=== PATIENT | female | born 1950 | race Caucasian/White ===

== ENCOUNTER 2018-07-17 10:47 | Emergency (ER) | payer SELFPAY ==
[2018-07-17] MEDS ORDERED: Sodium Chloride 0.9% 10 ML Syringe FLUSH PRN (11:13)
--- NOTE | 2018-07-17 11:57 | EDM.PDOC ---
<Moustapha Felipe - Last Filed: 07/17/18 15:07> ED HPI GENERAL MEDICAL PROBLEM - General Chief Complaint: Respiratory Problem Stated Complaint: [facility] Time Seen by Provider: 07/17/18 10:58 Source of Information: Reports: Patient, Family (grand daughter) History Limitations: Reports: No Limitations - History of Present Illness INITIAL COMMENTS - FREE TEXT/NARRATIVE: 68-Year old morbidly obese female who seldom seeks medical care presents for 2 falls this morning as well as bilateral lower extremity weakness and hypoxia. The patient has had 2 falls this morning that required assistance by EMS. The first fall happened around 6:00 am this morning after the patient aroused from bed. The second fall happened around 10:00 am in the patients living room after using the bathroom. The patient denies any loss of consciousness, or trauma to the head or neck. The only traumatic injury was a very mild scrape to the dorsal ulnar aspect of left hand. She admits to being short of breath for the past few months, especially with activity. She is ambulatory without assistance at home with the use of walker and cane. She lives at home in the care of her family members. Recently she has also developed a productive cough, and wheezing which she attributes to an upper respiratory infection that she caught from her grandson. She also states she has been feeling nauseated since last evening but no vomiting or abdominal pain. Chronically she has been noticing lower leg edema for longer than 3 months that she has never had medically evaluated. The patient denies fever, chills, palpitations, dizziness, focal weakness, changes in speech or behavior Onset: Today Duration: Getting Worse Location: Reports: Lower Extremity, Left, Lower Extremity, Right Quality: Reports: Other (weakness) Severity: Moderate Improves with: Reports: None Worsens with: Reports: None Context: Reports: Activity. Denies: Exercise, Lifting, Sick Contact, Trauma Associated Symptoms: Reports: No Other Symptoms, Weakness (lower extremities bilaterally), Other (nausea). Denies: Confusion, Chest Pain, Cough, cough w sputum, Fever/Chills, Headaches, Loss of Appetite, Malaise, Seizure, Shortness of Breath, Syncope - Related Data Allergies Allergy/AdvReac Type Severity Reaction Status Date / Time No Known Allergies Allergy Verified 07/17/18 10:58 Home Meds: Home Meds . [No Known Home Meds] 07/17/18 [History] ED ROS GENERAL - Review of Systems Review Of Systems: See Below Constitutional: Reports: No Symptoms. Denies: Fever, Chills, Night Sweats, Diaphoresis HEENT: Reports: No Symptoms. Denies: Ear Pain, Eye Pain, Nose Pain, Rhinitis, Sinus Problem, Throat Pain, Throat Swelling, Vertigo, Vision Change Respiratory: Reports: Shortness of Breath, Wheezing, Cough, Sputum. Denies: Pleuritic Chest Pain, Hemoptysis Cardiovascular: Reports: Dyspnea on Exertion, Edema. Denies: Chest Pain, Blood Pressure Problem, Claudication, Lightheadedness, Palpitations, Syncope Endocrine: Reports: No Symptoms, Other (Pt states she had a thyroid problem when she was younger but pt wasnt sure of the specifics). Denies: Fatigue, High Glucose, Low Glucose, Polydypsia, Polyuria : Reports: No Symptoms. Denies: Dysuria, Flank Pain, Frequency, Incontinence , Pain, Urgency Musculoskeletal: Reports: No Symptoms. Denies: Neck Pain, Joint Pain, Muscle Pain, Muscle Stiffness Skin: Reports: No Symptoms. Denies: Cyanosis, Jaundice, Mottled, Pallor, Diaphoresis, Dryness Neurological: Reports: Paresthesia (chronic of the lower extremities), Difficulty Walking (Pt is ambulatory with walker at home), Weakness (Subjective weekens of the LE bilaterally.). Denies: Confusion, Dizziness, Headache, Numbness, Syncope, Tremors, Trouble Speaking, Change in Speech, Gait Disturbance Psychiatric: Reports: No Symptoms. Denies: Anxiety, Confusion, Depression, Hallucinations Hematologic/Lymphatic: Reports: No Symptoms. Denies: Anemia, Easy Bleeding, Easy Bruising Immunologic: Reports: No Symptoms. Denies: Anaphylaxis ED EXAM, GENERAL - Physical Exam Exam: See Below Exam Limited By: No Limitations General Appearance: Alert, WD/WN, No Apparent Distress, Obese Eye Exam: Bilateral Eye: EOMI, Normal Inspection, PERRL Ears: Normal External Exam, Normal Canal, Hearing Grossly Normal, Normal TMs Ear Exam: Bilateral Ear: Auricle Normal, Canal Normal, TM normal Nose: Normal Inspection, Normal Mucosa, No Blood Head: Atraumatic, Normocephalic Neck: Normal Inspection, Supple, Non-Tender, Full Range of Motion Respiratory/Chest: No Respiratory Distress, No Accessory Muscle Use, Chest Non- Tender, Crackles (Fine late inspiratory crackles bilaterally in lower lung boyle). No: Rhonchi, Wheezing, Pleural Rub Cardiovascular: Normal Peripheral Pulses, Regular Rate, Rhythm, No Murmur, No Rub, Other (+4 pitting edema of the lower extremities extening to the knees bilaterally) Peripheral Pulses: 2+: Carotid (L), Carotid (R), Radial (L), Radial (R), Dorsalis Pedis (L), Dorsalis Pedis (R) GI/Abdominal: Normal Bowel Sounds, Soft, Non-Tender, No Organomegaly, No Distention, No Abnormal Bruit, No Mass (Female) Exam: Deferred Rectal (Female) Exam: Deferred Back Exam: Normal Inspection, Full Range of Motion, NT Extremities: Pedal Edema, Leg Pain (with palpation of the lower extremity.), Limited Range of Motion (of the knee and ankles bilaterally due to edema.). No : Pallor Neurological: Alert, Oriented, CN II-XII Intact, Normal Cognition, Normal Reflexes, No Motor/Sensory Deficits Psychiatric: Normal Affect, Normal Mood Skin Exam: Warm, Dry, Intact, Normal Color, No Rash Lymphatic: No Adenopathy Course - Vital Signs Last Recorded V/S: Last Vital Signs Temp 98.9 F 07/17/18 10:58 Pulse 85 07/17/18 10:58 Resp 27 H 07/17/18 10:58 BP 163/76 H 07/17/18 10:58 Pulse Ox 100 07/17/18 17:19 - Orders/Labs/Meds Orders: Active Orders 24 hr Category Date Time Status EKG 12 Lead [EKG Documentation Completion] [RC] STAT Care 07/17/18 11:14 Active Insert Peace Catheter [Insert Urinary Catheter] [OM.PC] Care 07/17/18 19:00 Ordered Q24H Oxygen Therapy [RC] ASDIRECTED Care 07/17/18 11:14 Active Peripheral IV Care [RC] . DIRECTED Care 07/17/18 11:15 Active Urinary Catheter Assessment [RC] ASDIRECTED Care 07/17/18 18:59 Active CULTURE BLOOD [BC] Stat Lab 07/17/18 11:30 Received UA W/MICROSCOPIC [URIN] Stat Lab 07/17/18 18:58 Ordered Sodium Chloride 0.9% [Saline Flush] Med 07/17/18 11:13 Active 10 ml FLUSH ASDIRECTED PRN Peripheral IV Insertion Adult [OM.PC] Stat Oth 07/17/18 11:14 Ordered Medication Orders Sodium Chloride (Saline Flush) 10 ml FLUSH ASDIRECTED PRN PRN Reason: Keep Vein Open Last Admin: 07/17/18 11:26 Dose: 10 ml Labs: Laboratory Tests 07/17/18 07/17/18 07/17/18 Range/Units 11:25 11:25 11:25 WBC 6.93 (3.98-10.04) K/mm3 RBC 3.80 L (3.98-5.22) M/mm3 Hgb 11.4 (11.2-15.7) gm/L Hct 38.8 (34.1-44.9) % MCV 102.1 H (79.4-94.8) fl MCH 30.0 (25.6-32.2) pg MCHC 29.4 L (32.2-35.5) g/dl RDW Std Deviation 58.7 H (36.4-46.3) fL Plt Count 181 L (182-369) K/mm3 MPV 10.1 (9.4-12.3) fl Neut % (Auto) 74.9 H (34.0-71.1) % Lymph % (Auto) 16.5 L (19.3-51.7) % [place] % (Auto) 7.5 (4.7-12.5) % Eos % (Auto) 0.1 L (0.7-5.8) Baso % (Auto) 0.4 (0.1-1.2) % Neut # (Auto) 5.19 (1.56-6.13) K/mm3 Lymph # (Auto) 1.14 L (1.18-3.74) K/mm3 [place] # (Auto) 0.52 H (0.24-0.36) K/mm3 Eos # (Auto) 0.01 L (0.04-0.36) K/mm3 Baso # (Auto) 0.03 (0.01-0.08) K/mm3 Manual Slide Review Normal smear D-Dimer, Quantitative (0.19-0.50) mg/L Sodium 141 (136-145) mEq/L Potassium 5.0 (3.5-5.1) mEq/L Chloride 109 H (98-107) mEq/L Carbon Dioxide 22 (21-32) mEq/L Anion Gap 15.0 (5-15) BUN 32 H (7-18) mg/dL Creatinine 2.2 H (0.55-1.02) mg/dL Est Cr Clr Drug Dosing TNP Estimated GFR (MDRD) 22 (>60) mL/min BUN/Creatinine Ratio 14.5 (14-18) Glucose 168 H (80-115) mg/dL Calcium 8.7 (8.5-10.1) mg/dL Total Bilirubin 0.3 (0.2-1.0) mg/dL AST 21 (15-37) U/L ALT 15 (14-59) U/L Alkaline Phosphatase 93 (46-116) U/L C-Reactive Protein 1.2 H* (<1.0) mg/dL NT-Pro-B Natriuret Pep (0-125) pg/mL Total Protein 7.8 (6.4-8.2) g/dl Albumin 3.1 L (3.4-5.0) g/dl Globulin 4.7 gm/dL Albumin/Globulin Ratio 0.7 L (1-2) Free T4 (0.76-1.46) ng/dL TSH 3rd Generation (0.358-3.74) uIU/mL Mycoplasma pneumon IgM Negative (NEGATIVE) 07/17/18 07/17/18 07/17/18 Range/Units 11:25 11:25 11:30 WBC (3.98-10.04) K/mm3 RBC (3.98-5.22) M/mm3 Hgb (11.2-15.7) gm/L Hct (34.1-44.9) % MCV (79.4-94.8) fl MCH (25.6-32.2) pg MCHC (32.2-35.5) g/dl RDW Std Deviation (36.4-46.3) fL Plt Count (182-369) K/mm3 MPV (9.4-12.3) fl Neut % (Auto) (34.0-71.1) % Lymph % (Auto) (19.3-51.7) % [place] % (Auto) (4.7-12.5) % Eos % (Auto) (0.7-5.8) Baso % (Auto) (0.1-1.2) % Neut # (Auto) (1.56-6.13) K/mm3 Lymph # (Auto) (1.18-3.74) K/mm3 [place] # (Auto) (0.24-0.36) K/mm3 Eos # (Auto) (0.04-0.36) K/mm3 Baso # (Auto) (0.01-0.08) K/mm3 Manual Slide Review D-Dimer, Quantitative (0.19-0.50) mg/L Sodium (136-145) mEq/L Potassium (3.5-5.1) mEq/L Chloride (98-107) mEq/L Carbon Dioxide (21-32) mEq/L Anion Gap (5-15) BUN (7-18) mg/dL Creatinine (0.55-1.02) mg/dL Est Cr Clr Drug Dosing Estimated GFR (MDRD) (>60) mL/min BUN/Creatinine Ratio (14-18) Glucose (80-115) mg/dL Calcium (8.5-10.1) mg/dL Total Bilirubin (0.2-1.0) mg/dL AST (15-37) U/L ALT (14-59) U/L Alkaline Phosphatase (46-116) U/L C-Reactive Protein (<1.0) mg/dL NT-Pro-B Natriuret Pep 82473 H (0-125) pg/mL Total Protein (6.4-8.2) g/dl Albumin (3.4-5.0) g/dl Globulin gm/dL Albumin/Globulin Ratio (1-2) Free T4 0.76 (0.76-1.46) ng/dL TSH 3rd Generation 7.263 H (0.358-3.74) uIU/mL Mycoplasma pneumon IgM (NEGATIVE) 07/17/18 Range/Units 12:27 WBC (3.98-10.04) K/mm3 RBC (3.98-5.22) M/mm3 Hgb (11.2-15.7) gm/L Hct (34.1-44.9) % MCV (79.4-94.8) fl MCH (25.6-32.2) pg MCHC (32.2-35.5) g/dl RDW Std Deviation (36.4-46.3) fL Plt Count (182-369) K/mm3 MPV (9.4-12.3) fl Neut % (Auto) (34.0-71.1) % Lymph % (Auto) (19.3-51.7) % [place] % (Auto) (4.7-12.5) % Eos % (Auto) (0.7-5.8) Baso % (Auto) (0.1-1.2) % Neut # (Auto) (1.56-6.13) K/mm3 Lymph # (Auto) (1.18-3.74) K/mm3 [place] # (Auto) (0.24-0.36) K/mm3 Eos # (Auto) (0.04-0.36) K/mm3 Baso # (Auto) (0.01-0.08) K/mm3 Manual Slide Review D-Dimer, Quantitative 4.17 H (0.19-0.50) mg/L Sodium (136-145) mEq/L Potassium (3.5-5.1) mEq/L Chloride (98-107) mEq/L Carbon Dioxide (21-32) mEq/L Anion Gap (5-15) BUN (7-18) mg/dL Creatinine (0.55-1.02) mg/dL Est Cr Clr Drug Dosing Estimated GFR (MDRD) (>60) mL/min BUN/Creatinine Ratio (14-18) Glucose (80-115) mg/dL Calcium (8.5-10.1) mg/dL Total Bilirubin (0.2-1.0) mg/dL AST (15-37) U/L ALT (14-59) U/L Alkaline Phosphatase (46-116) U/L C-Reactive Protein (<1.0) mg/dL NT-Pro-B Natriuret Pep (0-125) pg/mL Total Protein (6.4-8.2) g/dl Albumin (3.4-5.0) g/dl Globulin gm/dL Albumin/Globulin Ratio (1-2) Free T4 (0.76-1.46) ng/dL TSH 3rd Generation (0.358-3.74) uIU/mL Mycoplasma pneumon IgM (NEGATIVE) Meds: Medications Generic Name Dose Route Start Last Admin Trade Name Freq PRN Reason Stop Dose Admin Sodium Chloride 10 ml 07/17/18 11:13 07/17/18 11:26 Saline Flush FLUSH 10 ml ASDIRECTED PRN Administration Keep Vein Open Discontinued Medications Generic Name Dose Route Start Last Admin Trade Name Michelle PRN Reason Stop Dose Admin Enoxaparin Sodium 120 mg 07/17/18 16:41 07/17/18 17:05 Lovenox SUBCUT 07/17/18 16:42 120 mg ONETIME ONE Administration Furosemide 20 mg 07/17/18 18:10 07/17/18 18:20 Lasix IVPUSH 07/17/18 18:11 20 mg NOW ONE Administration - Re-Assessments/Exams Free Text/Narrative Re-Assessment/Exam: 07/17/18 13:30 CXR shows cardiomegaly and mild pulmonary vascular congestion Departure - Departure Disposition: DC/Tfer to [facility] 02 Clinical Impression: Hypoxia, Renal insufficiency syndrome, Elevated d-dimer Congestive heart failure Qualifiers: Heart failure type: combined systolic and diastolic Heart failure chronicity: acute on chronic Qualified Code(s): I50.43 - Acute on chronic combined systolic (congestive) and diastolic (congestive) heart failure Hypothyroidism Qualifiers: Hypothyroidism type: unspecified Qualified Code(s): E03.9 - Hypothyroidism, unspecified - Discharge Information Referrals: PCP,None [Primary Care Provider] - Forms: ED Department Discharge - My Orders Last 24 Hours: My Active Orders 07/17/18 11:13 Sodium Chloride 0.9% [Saline Flush] 10 ml FLUSH ASDIRECTED PRN 07/17/18 11:14 EKG 12 Lead [EKG Documentation Completion] [RC] STAT Oxygen Therapy [RC] ASDIRECTED Peripheral IV Insertion Adult [OM.PC] Stat 07/17/18 11:15 Peripheral IV Care [RC] . DIRECTED 07/17/18 11:30 CULTURE BLOOD [BC] Stat 07/17/18 18:58 UA W/MICROSCOPIC [URIN] Stat 07/17/18 18:59 Urinary Catheter Assessment [RC] ASDIRECTED 07/17/18 19:00 Insert Peace Catheter [Insert Urinary Catheter] [OM.PC] Q24H - Assessment/Plan Last 24 Hours: My Active Orders 07/17/18 11:13 Sodium Chloride 0.9% [Saline Flush] 10 ml FLUSH ASDIRECTED PRN 07/17/18 11:14 EKG 12 Lead [EKG Documentation Completion] [RC] STAT Oxygen Therapy [RC] ASDIRECTED Peripheral IV Insertion Adult [OM.PC] Stat 07/17/18 11:15 Peripheral IV Care [RC] . DIRECTED 07/17/18 11:30 CULTURE BLOOD [BC] Stat 07/17/18 18:58 UA W/MICROSCOPIC [URIN] Stat 07/17/18 18:59 Urinary Catheter Assessment [RC] ASDIRECTED 07/17/18 19:00 Insert Peace Catheter [Insert Urinary Catheter] [OM.PC] Q24H <J CarlosRaghavendra L - Last Filed: 07/17/18 19:09> Past Medical History - Past Health History Medical/Surgical History: Denies Medical/Surgical History Social & Family History - Tobacco Use Smoking Status *Q: Never Smoker Course - Re-Assessments/Exams Free Text/Narrative Re-Assessment/Exam: 07/17/18 11:53 68-year-old female has been brought here by [place] ambulance after having fallen twice this morning. Initial hx and exam was done by [employer] Gomez student. I did see patient on arrival to ED, ordered appropriate labs, interviewed and examined patient my self as well. I do agree with hx and exam as documented. 07/17/18 14:00. O2 sats did come up just fine when on oxygen 2 L nasal cannula. However when oxygen is off she quickly drops into the low to mid 80s. Chest x-ray shows moderate [place] megaly, mild pulmonary congestion. Daily infiltrate. No effusion. 07/17/18 14:00. I have discussed with Dr Wetzel, Hospitalist regarding admission for multiple underlying problems but especially, CHF, hypoxia off oxygen a d-dimer was checked because of her dyspnea, hypoxia and what only appears to be mild to moderate CHF on chest x-ray. Unfortunately that did come back elevated at over 4.0. Her creatinine is 2.2, therefore she is not candidate for CT pulmonary angiogram. 15:40. Dr Wetzel has requested she be transferred to a [facility] due to complexity of multiple underlying problems. Patient has not been agreeable to transfer to [place]. I and staff members have talked with her, still not willing to go to [place], wants to go home. She is not stable to go home. Will order lovenox. 16:55. Family has talked to her by phone, still not willing to go. Family is going to come in and personally visit with her. 07/17/18 18:00. Still waiting for family to come. I did go visit with the patient, discussed with her that she is not safe or well to go home that she either needs to be transferred to a [facility] or I can try again for admission at our hospital. At this time she does agree to go to a [facility]. 182. I've called [facility] admission coordinator. They are on diversion for admissions. 18 35.[address]iscuss[address] with [facility]. Dr Osman, Hospitalist accepts patient for direct admission. She will be transferred by ground ambulance. Departure - Departure Time of Disposition: 18:30 Condition: Serious
--- NOTE | 2018-07-17 12:27 | CR ---
Chest: Portable view of the chest was obtained. Comparison: No previous chest x-ray. Heart is enlarged. Pulmonary vessels are slightly congested. Lungs otherwise are clear. Mild scoliosis is noted within the spine. Impression: 1. Cardiomegaly and mild pulmonary vascular congestion. Diagnostic code #3
--- NOTE | 2018-07-17 16:05 | US ---
Bilateral lower extremity deep venous ultrasound: Duplex and color flow imaging was obtained of the right and left common femoral, proximal greater saphenous, superficial femoral, popliteal, posterior tibial and peroneal veins. Technologist's note: Limited exam due to very large body habitus Findings: Good compression is not seen within the superficial femoral vein and distally within both lower extremities. Distal veins show normal phasic flow and augmentation. More proximal veins show normal phasic flow, augmentation and compression. Impression: 1. Less than optimal study as noted above. No definite findings of deep venous thrombosis within either the right or left lower extremity. Diagnostic code #2
[2018-07-17] MEDS ORDERED: Enoxaparin 120 MG/0.8 ML Syringe SUBCUT ONE (16:41)
[2018-07-17] MEDS ORDERED: Furosemide 40 MG/4 ML VIAL IVPUSH ONE (18:10)
== END 2018-07-18 08:00 ==
LOC: JD.ED 10:47
DX: I50.43 Acute on chronic combined systolic (congestive) and diastolic (congestive) heart failure (principal); N28.9 Disorder of kidney and ureter, unspecified; E03.9 Hypothyroidism, unspecified; R09.02 Hypoxemia
CPT/HCPCS: 36415; 51702; 71045; 80053; 81001; 83880; 84439; 84443; 85025; 85379; 86140; 86738; 87040; 93005; 93970; 96372; 96374; 99285; J1650; J1940; 93010

== ENCOUNTER 2018-12-25 08:29 | Emergency (ER) | payer SELFPAY ==
--- NOTE | 2018-12-25 08:55 | EDM.PDOC ---
ED HPI GENERAL MEDICAL PROBLEM - General Chief Complaint: Neurological Problem Stated Complaint: [facility] Time Seen by Provider: 12/25/18 08:32 Source of Information: Reports: Patient, EMS History Limitations: Reports: Altered Mental Status - History of Present Illness INITIAL COMMENTS - FREE TEXT/NARRATIVE: 68 year-old female presents to the ED per [facility]. Family reports that she's been ill for about 3 days. Difficult extraction from the basement suite of a home. Patient is exhibiting confusion and disorientation. She apparently tried to go to the bathroom but missed the toilet. Therefore appears that she still able to walk. This unclear when she ate or drank last. She is not known diabetic and she does not take any medications. He is moaning and groaning. She is very cool to touch and I suspect she is hypothermic. She smells like she hasn't had a shower for at least a week. The unkept. Stool staining her underwear and is noted in the popliteal processes behind both knees. At this time she's not able to offer any useful history. Apparently there is been no falls although she has bruising right hand and some scratches on her right forearm consistent with a recent fall. Is darkly ecchymotic and appears to be 2 or 3 days old. Apparently the patient is oxygen dependent at 2 L /m. Paramedics indicate that her cognitive function seemed to improve somewhat after they placed her on simple mask at 8 L/m. O2 sats are 100% at time of evaluation in the ED. BP 107/60. Blood sugar was reported by paramedics to be 108. Heart rate is sinus bradycardia at 57/m Onset: Unknown/Unsure Onset Date: 12/22/18 (Family reports she's been unwell for the last 3 days.) Duration: Day(s):, Constant, Getting Worse Location: Reports: Other (Confused disoriented not eating or drinking.) Quality: Reports: Other (Altered level of consciousness. Found to be hypothermic with a temperature of 90.1 rectally.) Severity: Severe Improves with: Reports: Other (Paramedics indicate that she is normally on oxygen 2 L/m and her mentation cognitive function seemed to improve was then placed on a mask at 8 L/m.) Context: Reports: Other. Denies: Activity, Exercise, Lifting, Sick Contact, Trauma Associated Symptoms: Reports: Confusion (Apparently has been not well for the last 3-4 days mostly bed confined.), Fever/Chills (Unknown), Loss of Appetite, Malaise, Other. Denies: Chest Pain, Cough, cough w sputum, Diaphoresis, Headaches, Nausea/Vomiting, Rash, Seizure, Shortness of Breath, Syncope Treatments GENERAL OFFICE ASSOCIATE: Reports: Other (see below) (Peers that she may be having some diarrhea stool. None apparently.) Generalized Pain Score (Numeric/FACES): 7 - Related Data Allergies Allergy/AdvReac Type Severity Reaction Status Date / Time No Known Allergies Allergy Verified 12/25/18 08:48 Home Meds: Home Meds . [No Known Home Meds] 07/17/18 [History] Past Medical History - Past Health History Medical/Surgical History: Denies Medical/Surgical History Social & Family History - Living Situation & Occupation Living situation: Reports: Single Occupation: Unemployed ED ROS GENERAL - Review of Systems Review Of Systems: Unable To Obtain (Patient is exhibiting altered level of consciousness is confused) - Physical Exam Exam: See Below Exam Limited By: Altered Mental Status General Appearance: Anxious, Other (Moans and groans but does not offer any verbal responses to questions.) Eye Exam: Bilateral Eye: Normal Inspection Ears: Normal TMs Throat/Mouth: Other (Tongue is very dry and reddened. Oropharynx is dry and coated without exudate.) Head Exam: Atraumatic, Normocephalic, Other (No overt signs of head or facial trauma.) Neck: Normal Inspection, Supple. No: Lymphadenopathy (L), Lymphadenopathy (R) Respiratory/Chest: Lungs Clear, Normal Breath Sounds, Chest Non-Tender, Respiratory Distress (Mild tachypnea at rest.) Cardiovascular: Regular Rate, Rhythm, No Gallop, No Murmur, No Rub, Other ( Trace pitting edema both lower extremities.). No: Normal Peripheral Pulses, No Edema GI/Abdominal: Normal Bowel Sounds, Soft, Non-Tender, No Organomegaly, Other ( Abdominal girth limits ability to palpate solid organs.). No: No Abnormal Bruit , No Mass, Pelvis Stable, Distended Rectal (Female) Exam: Other (Covered in feces. She is stained her underwear.) Neuro Exam (Abbreviated): No Motor/Sensory Deficits, Other (Moves all limbs. ). No: Oriented, CN II-XII Intact, Normal Cognition, Normal Gait, Normal Reflexes DTR: 0: Achilles (R), Achilles (L), 1+: Bicep (R), Bicep (L), Patella (R), Patella (L) Back Exam: Normal Inspection. No: CVA Tenderness (L), CVA Tenderness (R) Extremities: Pedal Edema, Other (He has marked ecchymoses dorsal aspect right hand and some deep scratches on the extensor surface of the right forearm with bruising. This appears to be a day or 2.) Psychiatric: Anxious (A edema with lymphedema both lower extremities.), Other Skin Exam: Cool (Rectal temperature is 90.1 degrees.) EKG INTERPRETATION EKG Date: 12/25/18 Time: 09:08 Rhythm: Other (Sinus bradycardia at 58/m) Rate (Beats/Min): 58 [place]: RAD-Right [place] Deviation (127) P-Wave: Present (First-degree AV block) QRS: Other (Incomplete right bundle branch block. There are Q waves in V1 and V2. Consider old anteroseptal myocardial infarction. There are Q waves in leads 1 and aVL consider old bladder wall ND.) QT: Prolonged (QTC is mildly prolonged.) EKG Interpretation Comments: Abnormal ECG. Course - Vital Signs Last Recorded V/S: Last Vital Signs Temp 35.1 C L 12/25/18 12:02 Pulse 65 12/25/18 12:02 Resp 22 H 12/25/18 12:02 BP 99/64 12/25/18 12:02 Pulse Ox 93 L 12/25/18 12:02 - Orders/Labs/Meds Orders: Active Orders 24 hr Category Date Time Status EKG Documentation Completion [RC] STAT Care 12/25/18 08:50 Active Peace Catheter Insertion [Insert Urinary Catheter] [OM. Care 12/25/18 11:00 Ordered PC] Q24H Oxygen Therapy [RC] ASDIRECTED Care 12/25/18 08:50 Active Urinary Catheter Assessment [RC] ASDIRECTED Care 12/25/18 10:38 Active Urinary Catheter Assessment [RC] ASDIRECTED Care 12/25/18 10:58 Active Urinary Catheter Insertion [Insert Urinary Catheter] [ Care 12/25/18 10:45 Ordered OM.PC] Q24H CULTURE BLOOD [BC] Stat Lab 12/25/18 09:42 Received CULTURE BLOOD [BC] Stat Lab 12/25/18 10:00 Received CULTURE URINE [RM] Routine Lab 12/25/18 10:25 Received BiPAP [RESPCARE] Routine Oth 12/25/18 10:31 Active Blood Culture x2 Reflex Set [OM.PC] Stat Oth 12/25/18 08:52 Ordered Labs: Laboratory Tests 12/25/18 12/25/18 12/25/18 Range/Units 09:16 09:42 09:42 WBC 18.20 H (3.98-10.04) K/mm3 RBC 4.05 (3.98-5.22) M/mm3 Hgb 12.4 (11.2-15.7) gm/L Hct 40.4 (34.1-44.9) % MCV 99.8 H (79.4-94.8) fl MCH 30.6 (25.6-32.2) pg MCHC 30.7 L (32.2-35.5) g/dl RDW Std Deviation 64.2 H (36.4-46.3) fL Plt Count 157 L (182-369) K/mm3 MPV 10.7 (9.4-12.3) fl Neutrophils % (Manual) 87 H (40-60) % Band Neutrophils % 2 (0-10) % Lymphocytes % (Manual) 7 L (20-40) % Atypical Lymphs % 0 % Monocytes % (Manual) 3 (2-10) % Eosinophils % (Manual) 1 (0.7-5.8) % Basophils % (Manual) 0 L (0.1-1.2) Platelet Estimate Decreased RBC Morph Comment Normal ESR (0-20) mm/hr PT 12.8 H (9.7-12.0) SECONDS INR 1.19 APTT 42 H (22-31) SECONDS Puncture Site Rt radial ABG pH 6.90 L* (7.35-7.45) ABG pCO2 72.4 H* (35.0-45.0) mmHg ABG pO2 187.0 H* (80.0-100.0) mmHg ABG HCO3 13.5 L (22.0-26.0) meq/L ABG O2 Saturation 98.6 H (96.0-97.0) % ABG Base Excess -20.6 L (-2-2.0) A-a Gradient 81 mmHg O2 Delivery Device Simple mask Oxygen Flow Rate 8.0 FiO2 50.00 (21.00-100.00) % Sodium (136-145) mEq/L Potassium (3.5-5.1) mEq/L Chloride (98-107) mEq/L Carbon Dioxide (21-32) mEq/L Anion Gap (5-15) BUN (7-18) mg/dL Creatinine (0.55-1.02) mg/dL Est Cr Clr Drug Dosing mL/min Estimated GFR (MDRD) (>60) mL/min BUN/Creatinine Ratio (14-18) Glucose (80-115) mg/dL Serum Osmolality (280-300) mosm/kg Lactic Acid (0.4-2.0) mmol/L Calcium (8.5-10.1) mg/dL Magnesium (1.8-2.4) mg/dl Total Bilirubin (0.2-1.0) mg/dL AST (15-37) U/L ALT (14-59) U/L Alkaline Phosphatase (46-116) U/L Creatine Kinase (26-192) U/L CK-MB (CK-2) (0-3.6) ng/ml Troponin I (0.00-0.056) ng/mL C-Reactive Protein (<1.0) mg/dL NT-Pro-B Natriuret Pep (0-125) pg/mL Total Protein (6.4-8.2) g/dl Albumin (3.4-5.0) g/dl Globulin gm/dL Albumin/Globulin Ratio (1-2) TSH 3rd Generation (0.358-3.74) uIU/mL Urine Color (Yellow) Urine Appearance (Clear) Urine pH (5.0-8.0) Ur Specific [place] (1.005-1.030) Urine Protein (Negative) Urine Glucose (UA) (Negative) Urine Ketones (Negative) Urine Occult Blood (Negative) Urine Nitrite (Negative) Urine Bilirubin (Negative) Urine Urobilinogen (0.2-1.0) Ur Leukocyte Esterase (Negative) Urine RBC (0-5) /hpf Urine WBC (0-5) /hpf Ur Epithelial Cells (0-5) /hpf Urine Bacteria (FEW) /hpf Urine Mucus (FEW) /hpf Ethyl Alcohol (0.00) gm% Ketones (0.0-0.3) mM 12/25/18 12/25/18 12/25/18 Range/Units 09:42 09:42 09:42 WBC (3.98-10.04) K/mm3 RBC (3.98-5.22) M/mm3 Hgb (11.2-15.7) gm/L Hct (34.1-44.9) % MCV (79.4-94.8) fl MCH (25.6-32.2) pg MCHC (32.2-35.5) g/dl RDW Std Deviation (36.4-46.3) fL Plt Count (182-369) K/mm3 MPV (9.4-12.3) fl Neutrophils % (Manual) (40-60) % Band Neutrophils % (0-10) % Lymphocytes % (Manual) (20-40) % Atypical Lymphs % % Monocytes % (Manual) (2-10) % Eosinophils % (Manual) (0.7-5.8) % Basophils % (Manual) (0.1-1.2) Platelet Estimate RBC Morph Comment ESR 9 (0-20) mm/hr PT (9.7-12.0) SECONDS INR APTT (22-31) SECONDS Puncture Site ABG pH (7.35-7.45) ABG pCO2 (35.0-45.0) mmHg ABG pO2 (80.0-100.0) mmHg ABG HCO3 (22.0-26.0) meq/L ABG O2 Saturation (96.0-97.0) % ABG Base Excess (-2-2.0) A-a Gradient mmHg O2 Delivery Device Oxygen Flow Rate FiO2 (21.00-100.00) % Sodium 136 (136-145) mEq/L Potassium 6.3 H* (3.5-5.1) mEq/L Chloride 103 (98-107) mEq/L Carbon Dioxide 16 L (21-32) mEq/L Anion Gap 23.3 H (5-15) BUN 88 H D (7-18) mg/dL Creatinine 6.0 H D (0.55-1.02) mg/dL Est Cr Clr Drug Dosing 8.08 mL/min Estimated GFR (MDRD) 7 (>60) mL/min BUN/Creatinine Ratio 14.7 (14-18) Glucose 131 H (80-115) mg/dL Serum Osmolality 318 H (280-300) mosm/kg Lactic Acid 1.1 (0.4-2.0) mmol/L Calcium 7.3 L (8.5-10.1) mg/dL Magnesium 2.0 (1.8-2.4) mg/dl Total Bilirubin 0.4 (0.2-1.0) mg/dL AST 31 (15-37) U/L ALT 20 (14-59) U/L Alkaline Phosphatase 109 (46-116) U/L Creatine Kinase (26-192) U/L CK-MB (CK-2) 14.3 H (0-3.6) ng/ml Troponin I 0.178 H* (0.00-0.056) ng/mL C-Reactive Protein 10.9 H* (<1.0) mg/dL NT-Pro-B Natriuret Pep (0-125) pg/mL Total Protein 7.0 (6.4-8.2) g/dl Albumin 3.2 L (3.4-5.0) g/dl Globulin 3.8 gm/dL Albumin/Globulin Ratio 0.8 L (1-2) TSH 3rd Generation (0.358-3.74) uIU/mL Urine Color (Yellow) Urine Appearance (Clear) Urine pH (5.0-8.0) Ur Specific [place] (1.005-1.030) Urine Protein (Negative) Urine Glucose (UA) (Negative) Urine Ketones (Negative) Urine Occult Blood (Negative) Urine Nitrite (Negative) Urine Bilirubin (Negative) Urine Urobilinogen (0.2-1.0) Ur Leukocyte Esterase (Negative) Urine RBC (0-5) /hpf Urine WBC (0-5) /hpf Ur Epithelial Cells (0-5) /hpf Urine Bacteria (FEW) /hpf Urine Mucus (FEW) /hpf Ethyl Alcohol 0.00 (0.00) gm% Ketones (0.0-0.3) mM 12/25/18 12/25/18 12/25/18 Range/Units 09:42 09:42 09:42 WBC (3.98-10.04) K/mm3 RBC (3.98-5.22) M/mm3 Hgb (11.2-15.7) gm/L Hct (34.1-44.9) % MCV (79.4-94.8) fl MCH (25.6-32.2) pg MCHC (32.2-35.5) g/dl RDW Std Deviation (36.4-46.3) fL Plt Count (182-369) K/mm3 MPV (9.4-12.3) fl Neutrophils % (Manual) (40-60) % Band Neutrophils % (0-10) % Lymphocytes % (Manual) (20-40) % Atypical Lymphs % % Monocytes % (Manual) (2-10) % Eosinophils % (Manual) (0.7-5.8) % Basophils % (Manual) (0.1-1.2) Platelet Estimate RBC Morph Comment ESR (0-20) mm/hr PT (9.7-12.0) SECONDS INR APTT (22-31) SECONDS Puncture Site ABG pH (7.35-7.45) ABG pCO2 (35.0-45.0) mmHg ABG pO2 (80.0-100.0) mmHg ABG HCO3 (22.0-26.0) meq/L ABG O2 Saturation (96.0-97.0) % ABG Base Excess (-2-2.0) A-a Gradient mmHg O2 Delivery Device Oxygen Flow Rate FiO2 (21.00-100.00) % Sodium (136-145) mEq/L Potassium (3.5-5.1) mEq/L Chloride (98-107) mEq/L Carbon Dioxide (21-32) mEq/L Anion Gap (5-15) BUN (7-18) mg/dL Creatinine (0.55-1.02) mg/dL Est Cr Clr Drug Dosing mL/min Estimated GFR (MDRD) (>60) mL/min BUN/Creatinine Ratio (14-18) Glucose (80-115) mg/dL Serum Osmolality (280-300) mosm/kg Lactic Acid (0.4-2.0) mmol/L Calcium (8.5-10.1) mg/dL Magnesium (1.8-2.4) mg/dl Total Bilirubin (0.2-1.0) mg/dL AST (15-37) U/L ALT (14-59) U/L Alkaline Phosphatase (46-116) U/L Creatine Kinase 507 H (26-192) U/L CK-MB (CK-2) (0-3.6) ng/ml Troponin I (0.00-0.056) ng/mL C-Reactive Protein (<1.0) mg/dL NT-Pro-B Natriuret Pep > 09638 H (0-125) pg/mL Total Protein (6.4-8.2) g/dl Albumin (3.4-5.0) g/dl Globulin gm/dL Albumin/Globulin Ratio (1-2) TSH 3rd Generation 11.290 H (0.358-3.74) uIU/mL Urine Color (Yellow) Urine Appearance (Clear) Urine pH (5.0-8.0) Ur Specific [place] (1.005-1.030) Urine Protein (Negative) Urine Glucose (UA) (Negative) Urine Ketones (Negative) Urine Occult Blood (Negative) Urine Nitrite (Negative) Urine Bilirubin (Negative) Urine Urobilinogen (0.2-1.0) Ur Leukocyte Esterase (Negative) Urine RBC (0-5) /hpf Urine WBC (0-5) /hpf Ur Epithelial Cells (0-5) /hpf Urine Bacteria (FEW) /hpf Urine Mucus (FEW) /hpf Ethyl Alcohol (0.00) gm% Ketones 0.23 (0.0-0.3) mM 12/25/18 12/25/18 12/25/18 Range/Units 10:10 10:25 12:02 WBC (3.98-10.04) K/mm3 RBC (3.98-5.22) M/mm3 Hgb (11.2-15.7) gm/L Hct (34.1-44.9) % MCV (79.4-94.8) fl MCH (25.6-32.2) pg MCHC (32.2-35.5) g/dl RDW Std Deviation (36.4-46.3) fL Plt Count (182-369) K/mm3 MPV (9.4-12.3) fl Neutrophils % (Manual) (40-60) % Band Neutrophils % (0-10) % Lymphocytes % (Manual) (20-40) % Atypical Lymphs % % Monocytes % (Manual) (2-10) % Eosinophils % (Manual) (0.7-5.8) % Basophils % (Manual) (0.1-1.2) Platelet Estimate RBC Morph Comment ESR (0-20) mm/hr PT (9.7-12.0) SECONDS INR APTT (22-31) SECONDS Puncture Site Rt brachial Rt radial ABG pH 6.95 L* 7.00 L* (7.35-7.45) ABG pCO2 70.9 H* 67.2 H (35.0-45.0) mmHg ABG pO2 86.0 83.0 (80.0-100.0) mmHg ABG HCO3 14.9 L 15.9 L (22.0-26.0) meq/L ABG O2 Saturation 93.9 L 94.0 L (96.0-97.0) % ABG Base Excess -18.0 L -15.9 L (-2-2.0) A-a Gradient 61 119 mmHg O2 Delivery Device Nasal cannula Bipap 10/7 Oxygen Flow Rate 3.0 5.0 FiO2 33.00 40.00 (21.00-100.00) % Sodium (136-145) mEq/L Potassium (3.5-5.1) mEq/L Chloride (98-107) mEq/L Carbon Dioxide (21-32) mEq/L Anion Gap (5-15) BUN (7-18) mg/dL Creatinine (0.55-1.02) mg/dL Est Cr Clr Drug Dosing mL/min Estimated GFR (MDRD) (>60) mL/min BUN/Creatinine Ratio (14-18) Glucose (80-115) mg/dL Serum Osmolality (280-300) mosm/kg Lactic Acid (0.4-2.0) mmol/L Calcium (8.5-10.1) mg/dL Magnesium (1.8-2.4) mg/dl Total Bilirubin (0.2-1.0) mg/dL AST (15-37) U/L ALT (14-59) U/L Alkaline Phosphatase (46-116) U/L Creatine Kinase (26-192) U/L CK-MB (CK-2) (0-3.6) ng/ml Troponin I (0.00-0.056) ng/mL C-Reactive Protein (<1.0) mg/dL NT-Pro-B Natriuret Pep (0-125) pg/mL Total Protein (6.4-8.2) g/dl Albumin (3.4-5.0) g/dl Globulin gm/dL Albumin/Globulin Ratio (1-2) TSH 3rd Generation (0.358-3.74) uIU/mL Urine Color Dark yellow (Yellow) Urine Appearance Cloudy H (Clear) Urine pH 5.0 (5.0-8.0) Ur Specific [place] > or = 1.030 (1.005-1.030) Urine Protein 3+ H (Negative) Urine Glucose (UA) Negative (Negative) Urine Ketones Trace H (Negative) Urine Occult Blood 2+ H (Negative) Urine Nitrite Positive H (Negative) Urine Bilirubin 1+ H (Negative) Urine Urobilinogen 0.2 (0.2-1.0) Ur Leukocyte Esterase Negative (Negative) Urine RBC 5-10 H (0-5) /hpf Urine WBC 0-5 (0-5) /hpf Ur Epithelial Cells 0-5 (0-5) /hpf Urine Bacteria Moderate H (FEW) /hpf Urine Mucus Few (FEW) /hpf Ethyl Alcohol (0.00) gm% Ketones (0.0-0.3) mM Meds: Medications Discontinued Medications Generic Name Dose Route Start Last Admin Trade Name Rodq PRN Reason Stop Dose Admin Calcium Gluconate 1 gm 12/25/18 12:08 12/25/18 12:35 Calcium Gluconate IV 12/25/18 12:09 1 gm ONETIME ONE Administration Dextrose/Sodium Chloride 1,000 mls @ 999 mls/hr 12/25/18 09:00 12/25/18 09:18 Dextrose 5%-Normal Saline IV 999 mls/hr ASDIRECTED MARIXA Administration Linezolid 600 mg/ Premix 300 mls @ 300 mls/hr 12/25/18 10:58 12/25/18 11:18 IV 12/25/18 11:57 300 mls/hr ONETIME ONE Administration Dextrose/Lactated Ringer's 1,000 mls @ 75 mls/hr 12/25/18 12:15 12/25/18 12: 43 Dextrose 5%-Lactated Ringers IV 75 mls/hr ASDIRECTED MARIXA Administration Lorazepam 1 mg 12/25/18 12:26 12/25/18 12:35 Ativan IVPUSH 12/25/18 12:27 1 mg ONETIME ONE Administration Sodium Bicarbonate 50 meq 12/25/18 09:15 12/25/18 09:22 Sodium Bicarbonate 8.4% IVPUSH 12/25/18 09:16 50 meq ONETIME ONE Administration Sodium Bicarbonate 50 meq 12/25/18 09:21 12/25/18 09:30 Sodium Bicarbonate 8.4% IVPUSH 12/25/18 09:22 50 meq ONETIME ONE Administration Sodium Bicarbonate Confirm 12/25/18 09:18 12/25/18 09:33 Sodium Bicarbonate 8.4% Administered 12/25/18 09:19 Not Given Dose 50 meq .ROUTE .STK-MED ONE Sodium Bicarbonate Confirm 12/25/18 09:23 12/25/18 09:33 Sodium Bicarbonate 8.4% Administered 12/25/18 09:24 Not Given Dose 50 meq .ROUTE .STK-MED ONE Sodium Bicarbonate 50 meq 12/25/18 10:30 12/25/18 10:34 Sodium Bicarbonate 8.4% IVPUSH 12/25/18 10:31 50 meq ONETIME ONE Administration Sodium Bicarbonate Confirm 12/25/18 10:28 12/25/18 10:34 Sodium Bicarbonate 8.4% Administered 12/25/18 10:29 Not Given Dose 100 meq .ROUTE .STK-MED ONE Sodium Bicarbonate 50 meq 12/25/18 10:30 12/25/18 10:34 Sodium Bicarbonate 8.4% IVPUSH 12/25/18 10:31 50 meq ONETIME ONE Administration - Radiology Interpretation Free Text/Narrative:: 68-year-old female brought to the ED for evaluation by [facility] after family members found her confused and disoriented this morning. Appears that she tried to get to the toilet and didn't make it. She can't answer any questions. She appears confused and disoriented. Apparently she is on oxygen at 2 L/m but was found without her oxygen with very low O2 sats in the 82 percentile according to paramedics. She is placed on a nonrebreather date liters per minute and O2 sats are now 100%. The paramedics felt that her cognitive function improved somewhat after pressing her oxygen. She is found to have a stable blood pressure 107/60. she is hypothermic with a rectal temperature of 90.1. She is obese. No overt signs of trauma and then other than ecchymoses to the dorsal aspect of her right hand and extensor surface of the forearm on the right side. No signs of broken bones. No sign of skin infection. He has lost control of her bowels with stool staining. Underclothing and stool noted behind both knees. Unclear she's been having diarrhea for a period of time. Plan septic workup will be carried out. She will require ABGs as well. IV will be D5 normal saline at open. She'll be placed on a bear hugger to start to warm her body back up. Will have CT of the head. - Re-Assessments/Exams Free Text/Narrative Re-Assessment/Exam: 12/25/18 09:19 ABGs revealed a pH of 6.90. PCO2 is 72.4. PaO2 is 187. Bicarbonate is 13.5. Base excess is -20.6. Patient will be reduced to nasal prongs at 4L/min. She is a CO2 retainer. She'll be given 2 amp of sodium bicarbonate immediately and ABGs will be rechecked in half an hour. With family members and indicated the she does not wish to be resuscitated. They request DNR /DNI. 12/25/18 09:57 O2 sats are 93-94% on 4 L/m by nasal prongs. Bp is 110/82. 12/25/18 10:29 second set of ABGs are now back. They're essentially unchanged with a pH of 6.95 and a PCO2 of 70.9. PO2 is now 86. Sats are 93.9%. I'm going to give another 2 A of sodium bicarbonate. Going to start a trial of BiPAP with pressures of 10/7 with 40% FiO2. 12/25/18 10:53 chest x-ray reveals marked cardiomegaly noted on previous chest x-ray. The left heart border extends to the costal margin. There appears to be a right-sided pleural effusion with possible secondary pneumonia infiltrate. 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 There is diffuse small vessel ischemic changes in both basal ganglia and early encephalomalacia at both the anterior and posterior horns of the lateral ventricles compatible with significant age degenerative changes. Heart rate is 65. BP remains 124/49 sats are 90% on BiPAP 10/7 cm of mercury with FiO2 of 40% . The oxygen will be increased to 50%. 12/25/18 10:57 White count is elevated at 18.20 ED 7% neutrophils and 2% band cells reported. Hemoglobin is 12.4 with hematocrit of 40.4. MCV is elevated at 99.8. Platelet count is 157. PT is 12.8 with an INR 1.19 and a PTT of 42. I.e. mild auto anticoagulation. Lactic acid is 1.1. CPK is 507. BNP is greater than 35,000. TSH is markedly elevated at 11.290. Serum ketones are normal at 0.23. Chemistry is pending. I will go ahead and start her on Lasix 60 mg IV bolus. She 'll also be started on Zosyn 600 mg IV. 12/25/18 11:32 Sodium is 136. Potassium is 6.3. Patient has received Lasix 60 mg IV. Chloride is 103 with a bicarbonate of 16. Anion gap is elevated at 23.3. BUN is 88 with a creatinine of 6.0 indicating severe renal insufficiency. Estimated GFR is only 7. This is stage V renal failure. BUN/creatinine ratio is 14.7 with a glucose of 131. Serum osmolality is pending. Lactic acid is 1.1 with a calcium of 7.3. Magnesium is 2.0. Liver function normal. Creatine kinase is elevated at 507. CK-MB fraction is 14.3 and troponin I is 0.178. C-reactive protein is 10.9. BNP is greater than 35,000. Total protein is 7.0 with albumin fraction of 3.2. Lobulated is 3.8. TSH is elevated at 11.290 which is undiagnosed hypothyroidism. Urinalysis is cloudy with 3+ proteinuria negative glucose trace of ketones 2+ occult blood positive nitrates 1+ bilirubin negative leukocyte esterase. 5-10 RBCs and 0-5 WBCs and moderate bacteria. Blood alcohol is 0.00. Patient has impending renal failure. 12/25/18 12:26 Spoke to the 1 call nurse at [facility] in [facility] and she has been accepted to the ED. Dr Paulino has accepted care. She will return as part of that facility per ground ambulance. I'm going to give her Ativan 1 mg IV to help her not slight the BiPAP machine so much. Departure - Departure Time of Disposition: 13:20 Disposition: DC/Tfer to Acute Hospital 02 Condition: Critical Clinical Impression: Congestive heart failure with left ventricular diastolic dysfunction, NYHA class 1, Chronic renal insufficiency, stage V, Hyperkalemia, Neutrophilic leukocytosis, Hypothyroidism determined by thyroid function test Respiratory failure with hypoxia and hypercapnia Qualifiers: Chronicity: acute on chronic Qualified Code(s): J96.21 - Acute and chronic respiratory failure with hypoxia Hypothermia Qualifiers: Encounter type: initial encounter Qualified Code(s): T68.XXXA - Hypothermia, initial encounter - Discharge Information *PRESCRIPTION DRUG MONITORING PROGRAM REVIEWED*: Not Applicable *COPY OF PRESCRIPTION DRUG MONITORING REPORT IN PATIENT MAGUI: Not Applicable Referrals: PCP,None [Primary Care Provider] - Forms: ED Department Discharge Additional Instructions: 60-year-old female with multiple comorbidities to be transferred to [facility] for potential salvage by way of bedside dialysis. Questionable sepsis. Respiratory failure secondary to severe congestive heart failure. Identified hypothermia at the time of initial assessment and she is found to be hypothyroid with a TSH of 11.2. Respiratory failure is being treated with BiPAP with current treatment with 15/10 mmHg 8 with FiO2 of 60%. Hyperkalemia has been treated with Lasix 60 mg IV. Sodium bicarbonate for ampules because of severe low pH. And calcium gluconate 1 ampule. - My Orders Last 24 Hours: My Active Orders 12/25/18 08:50 EKG Documentation Completion [RC] STAT Oxygen Therapy [RC] ASDIRECTED 12/25/18 08:52 Blood Culture x2 Reflex Set [OM.PC] Stat 12/25/18 09:42 CULTURE BLOOD [BC] Stat 12/25/18 10:00 CULTURE BLOOD [BC] Stat 12/25/18 10:25 CULTURE URINE [RM] Routine 12/25/18 10:31 BiPAP [RESPCARE] Routine 12/25/18 10:38 Urinary Catheter Assessment [RC] ASDIRECTED 12/25/18 10:45 Urinary Catheter Insertion [Insert Urinary Catheter] [OM.PC] Q24H 12/25/18 10:58 Urinary Catheter Assessment [RC] ASDIRECTED 12/25/18 11:00 Peace Catheter Insertion [Insert Urinary Catheter] [OM.PC] Q24H - Assessment/Plan Last 24 Hours: My Active Orders 12/25/18 08:50 EKG Documentation Completion [RC] STAT Oxygen Therapy [RC] ASDIRECTED 12/25/18 08:52 Blood Culture x2 Reflex Set [OM.PC] Stat 12/25/18 09:42 CULTURE BLOOD [BC] Stat 12/25/18 10:00 CULTURE BLOOD [BC] Stat 12/25/18 10:25 CULTURE URINE [RM] Routine 12/25/18 10:31 BiPAP [RESPCARE] Routine 12/25/18 10:38 Urinary Catheter Assessment [RC] ASDIRECTED 12/25/18 10:45 Urinary Catheter Insertion [Insert Urinary Catheter] [OM.PC] Q24H 12/25/18 10:58 Urinary Catheter Assessment [RC] ASDIRECTED 12/25/18 11:00 Peace Catheter Insertion [Insert Urinary Catheter] [OM.PC] Q24H
[2018-12-25] MEDS ORDERED: Dextrose 5%-0.9% NaCl 1,000 ML IV SCH (09:00)
[2018-12-25] MEDS ORDERED: Sodium Bicarbonate 8.4% 50 MEQ/50 ML Syringe IVPUSH ONE ×4 (09:15→10:30)
[2018-12-25] MEDS ORDERED: Sodium Bicarbonate 8.4% 50 MEQ/50 ML SDV ONE ×3 (09:18→10:28)
--- NOTE | 2018-12-25 10:41 | CT ---
Head CT Technique: Multiple axial sections through the brain were obtained. Intravenous contrast was not utilized. Comparison: No prior intracranial imaging. Findings: Ventricles along with basal cisterns and sulci over the convexities are mildly prominent. Slightly more asymmetric frontal atrophy is seen. Low-density finding is seen within the left occipital lobe which is most likely due to previous infarct. Very minimal diminished density is noted within portions of the periventricular white matter which is compatible with small vessel ischemic demyelination change. No evidence of intracranial hemorrhage. No midline shift or mass effect is seen. Bone window settings were reviewed which shows no acute calvarial abnormality. Mild areas of soft tissue density is seen within the left maxillary sinus which is most likely due to retained secretions. No acute calvarial abnormality is appreciated. Impression: 1. Senescent change as described above. No acute intracranial abnormality is appreciated. Diagnostic code #2
[2018-12-25] MEDS ORDERED: Linezolid 600 MG in Premix Bag 1 BAG IV ONE (10:58)
[2018-12-25] MEDS ORDERED: Calcium Gluconate 10% 1 GM/10 ML SDV IV ONE (12:08)
[2018-12-25] MEDS ORDERED: Dextrose 5%-Lactated Ringers 1,000 ML IV SCH (12:15)
[2018-12-25] MEDS ORDERED: LORazepam 2 MG/ML SDV IVPUSH ONE (12:26)
--- NOTE | 2018-12-25 14:15 | CR ---
Chest: Portable view of the chest was obtained. Comparison: Prior chest x-ray of 07/17/18. Heart is enlarged. Pleural thickening is compatible with pleural effusion located along the right lateral chest. Elevated right hemidiaphragm is seen. Left lung is clear. Bony structures are grossly intact. Impression: 1. Moderately large right-sided pleural effusion. 2. Cardiomegaly. 3. 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 Diagnostic code #3
== END 2018-12-25 13:25 ==
LOC: JD.ED 08:29
DX: T68.XXXA Hypothermia, initial encounter (principal); J96.21 Acute and chronic respiratory failure with hypoxia; I50.30 Unspecified diastolic (congestive) heart failure; N18.5 Chronic kidney disease, stage 5; D72.829 Elevated white blood cell count, unspecified; E87.5 Hyperkalemia; E03.9 Hypothyroidism, unspecified; R94.6 Abnormal results of thyroid function studies
CPT/HCPCS: 36415; 36600; 51702; 70450; 71045; 80053; 81001; 82009; 82550; 82553; 82803; 83605; 83735; 83880; 83930; 84443; 84484; 85007; 85027; 85610; 85652; 85730; 86140; 87040; 87086; 93005; 94660; 96361; 96365; 96375; 96376; 99285; G0480; J0610; J2020; J2060; J7042; 93010